=== PATIENT | female | born 1995 | race Caucasian/White ===

== ENCOUNTER 2020-06-26 03:41 | Emergency (ER) | payer MEDICAID, OTHER ==
[2020-06-26] MEDS ORDERED: Zofran 4 MG/2 ML VIAL IV ONE (04:03)
[2020-06-26] MEDS ORDERED: Sodium Chloride 0.9% 1000 ML 1,000 ML IV STA ×2 (04:03→06:54)
[2020-06-26] MEDS ORDERED: Sodium Chloride 0.9% 1000 ML 1,000 ML ONE ×2 (04:08→06:55)
[2020-06-26] MEDS ORDERED: Zofran 4 MG/2 ML VIAL ONE (04:08)
[2020-06-26 04:22] LABS: Hematocrit 48.1 % (35-47); Hemoglobin 15.3 gm/dl (12.0-16.0); Mean Cell Volume 88.9 fl (78-100); Mean Corpuscular Hemoglobin 28.3 pg (26-32); Mean Corpuscular Hgb Concent. 31.8 g/dl (32-36); Mean Platelet Volume 10.5 fl (7.5-11.0); Neutrophil % 60.5 % (36.0-66.0); Platelet Count 591 K/mm3 (150-450); Red Blood Count 5.41 M/mm3 (4.1-5.4); Red Cell Distribution Width 13.9 % (11.5-14.0); White Blood Count 19.4 K/mm3 (4.0-10.5)
[2020-06-26 04:23] LABS: Absolute Neutrophil Ct (ANC) 11.73 (1.4-6.9); BASOPHIL % 0.2 % (0.0-0.4); Basophil (Absolute #) 0.04 (0-0.4); Eosinophil % 1.6 % (0.00-5.0); Eosinophil (Absolute #) 0.32 (0-0.5); Lymphocyte (Absolute #) 6.15 (1.0-4.6); Lymphocytes % 31.7 % (24.0-44.0); Monocyte (Absolute #) 1.16 (0.0-1.3)
[2020-06-26] MEDS ORDERED: MORPHINE SULFATE 4 MG INJ IV ONE (04:26)
[2020-06-26] MEDS ORDERED: PROTONIX 40 MG IV IV ONE ×2 (04:26→04:28)
[2020-06-26] MEDS ORDERED: MORPHINE SULFATE 4 MG INJ ONE (04:28)
[2020-06-26] MEDS ORDERED: Reglan 10 MG/2 ML IV ONE (04:33)
--- NOTE | 2020-06-26 04:33 | ERPHSYRPT ---
- History of Present Illness Historian: patient Exam Limitations: no limitations Patient Subjective Stated Complaint: pt states "I have been vomiting all night and my stomach hurts." Triage Nursing Assessment: pt ambulated into the er; pt is axo x4; c/o N/V and abd pain; pt states 7/10 pain to upper abd; pt states tenderness with palpation to upper abd; pt states that pain began tonight; pt states that she has been vomiting since 2300; pt states that she thinks she ate something bad; abd in round, soft, tenderness with palpation; N/V; diaphoretic; mucus membranes pink and moist; pt denies fever; pt afebrile; hypertensive; pt denies diarrhea Timing/Duration: hour(s) (6), constant, gradual onset, worse (Both thank you) Activities at Onset: rest Quality: sharpness Abdominal Pain Onset Location: RUQ, epigastric Pain Radiation: no radiation Severity of Pain-Max: moderate Severity of Pain-Current: moderate Modifying Factors: Worsens With: movement, palpation, vomiting Associated Symptoms: nausea, vomiting Previous symptoms: same symptoms as today Hx Tetanus, Diphtheria Vaccination/Date Given: No Hx Influenza Vaccination/Date Given: No Hx Pneumococcal Vaccination/Date Given: No <RHONDA GRANT - Last Filed: 06/26/20 04:30> <LAUREN HUMPHREY - Last Filed: 06/26/20 08:06> - History of Present Illness Time Seen by Provider: 06/26/20 04:26 Physician History: 25 years old female presented in the ER with chief complaint of epigastric and right upper quadrant pain started earlier tonight, constant, moderate to severe intensity, sharp in nature, nonradiating, associated with multiple episodes of nonprojectile, nonbilious vomiting with no hematemesis. Patient report having similar symptoms couple of days ago with nausea without vomiting and subsided on its own. No fever or chills reported. (RHONDA GRANT) Allergies/Adverse Reactions: No Known Drug Allergies Allergy (Unverified 06/26/20 03:47) Home Medications: Methadone HCl 80 mg PO DAILY 06/26/20 [History] Travel Risk - International Travel Have you traveled outside of the country in past 3 weeks: No - Coronavirus Screening Are you exhibiting any of the following symptoms?: Yes Symptoms: Vomiting/Diarrhea Close contact with a COVID-19 positive Pt in past 14-21 Days: No - Vaccine Status Have you recieved a Covid-19 vaccination: No <RHONDA GRANT - Last Filed: 06/26/20 04:30> - Review of Systems Constitutional: Fatigue, Weakness Eyes: No Symptoms Ears, Nose, & Throat: No Symptoms Respiratory: No Symptoms Cardiac: No Symptoms Abdominal/Gastrointestinal: Abdominal Pain, Nausea, Vomiting Genitourinary Symptoms: No Symptoms Musculoskeletal: No Symptoms Skin: No Symptoms Neurological: No Symptoms Psychological: No Symptoms Endocrine: No Symptoms Hematologic/Lymphatic: No Symptoms Immunological/Allergic: No Symptoms <RHONDA GRANT - Last Filed: 06/26/20 04:30> - Past Medical History Pertinent Past Medical History: Yes Psycho-Social History: Anxiety, Depression - Past Surgical History Past Surgical History: No - Social History Smoking Status: Current some day smoker Exposure to second hand smoke: No Drug Use: marijuana Patient Lives Alone: No - Female History Hx Now: Yes <RHONDA GRANT - Last Filed: 06/26/20 04:30> - Physical Exam General Appearance: no apparent distress, alert Eye Exam: PERRL/EOMI, eyes nml inspection Ears, Nose, Throat Exam: normal ENT inspection, TMs normal, pharynx normal Neck Exam: normal inspection, supple, full range of motion Respiratory Exam: normal breath sounds, lungs clear Cardiovascular Exam: regular rate/rhythm, normal heart sounds Gastrointestinal/Abdomen Exam: soft, normal bowel sounds, tenderness (Epigastric right upper quadrant with positive Kaur sign), guarding Back Exam: normal inspection, normal range of motion Extremity Exam: normal inspection, normal range of motion, pelvis stable Neurologic Exam: alert, oriented x 3, cooperative Skin Exam: normal color SpO2 Interpretation: normal SpO2: 96 O2 Delivery: Room Air <RHONDA GRANT - Last Filed: 06/26/20 04:30> - Physical Exam General Appearance: no apparent distress, mild distress <LAUREN HUMPHREY - Last Filed: 06/26/20 08:06> - Nursing Vital Signs Nursing Vital Signs: Initial Vital Signs Pulse Rate 103 H 06/26/20 03:50 Respiratory Rate 22 06/26/20 03:50 Blood Pressure 152/113 06/26/20 03:50 Pain Scale Pain Intensity 0 - Course Nursing assessment & vital signs reviewed: Yes - CT Exams Abdomen/Pelvis CT Interpretation: Tele-radiologist Report, Other (Patient by Dr. Vargas indicated mild fluid distention small bowel loops with wall thickening and enhancement favoring enteritis.) <LAUREN HUMPHREY - Last Filed: 06/26/20 08:06> Ordered Tests: Active Orders 24 hr Category Date Time Status NPO (ED) STAT Care 06/26/20 04:26 Active ABDOMEN AND PELVIS W CONTRAST [CT] Stat Exams 06/26/20 04:23 Completed AMYLASE Stat Lab 06/26/20 04:15 Completed CBC W DIFF Stat Lab 06/26/20 04:15 Completed CMP Stat Lab 06/26/20 04:15 Completed HCG QUALITATIVE,SERUM Stat Lab 06/26/20 04:20 Completed LIPASE Stat Lab 06/26/20 04:15 Completed UA W/RFX UR CULTURE Stat Lab 06/26/20 06:15 Completed Medication Summary Discontinued Medications Generic Name Dose Route Start Last Admin Trade Name Freq PRN Reason Stop Dose Admin Sodium Chloride 1,000 mls @ 999 mls/hr 06/26/20 04:03 06/26/20 05:38 Sodium Chloride 0.9% 1000 Ml IV 06/26/20 05:03 Infused .Q1H1M STA Infusion Sodium Chloride Confirm 06/26/20 04:08 Sodium Chloride 0.9% 1000 Ml Administered 06/26/20 04:09 Dose 1,000 mls @ ud .ROUTE .STK-MED ONE Sodium Chloride 1,000 mls @ 999 mls/hr 06/26/20 06:54 06/26/20 06:57 Sodium Chloride 0.9% 1000 Ml IV 06/26/20 07:54 999 mls/hr .Q1H1M STA Administration Sodium Chloride Confirm 06/26/20 06:55 Sodium Chloride 0.9% 1000 Ml Administered 06/26/20 06:56 Dose 1,000 mls @ ud .ROUTE .STK-MED ONE Metoclopramide HCl 10 mg 06/26/20 04:33 06/26/20 04:39 Reglan 10 Mg/2 Ml IV 06/26/20 04:34 10 mg STAT ONE Administration Metoclopramide HCl Confirm 06/26/20 04:37 Reglan 10 Mg/2 Ml Administered 06/26/20 04:38 Dose 10 mg .ROUTE .STK-MED ONE Morphine Sulfate 4 mg 06/26/20 04:26 06/26/20 04:29 Morphine Sulfate 4 Mg Inj IV 06/26/20 04:27 4 mg STAT ONE Administration Morphine Sulfate Confirm 06/26/20 04:28 Morphine Sulfate 4 Mg Inj Administered 06/26/20 04:29 Dose 4 mg .ROUTE .STK-MED ONE Ondansetron HCl 4 mg 06/26/20 04:03 06/26/20 04:11 Zofran 4 Mg/2 Ml Vial IV 06/26/20 04:04 4 mg STAT ONE Administration Ondansetron HCl Confirm 06/26/20 04:08 Zofran 4 Mg/2 Ml Vial Administered 06/26/20 04:09 Dose 4 mg .ROUTE .STK-MED ONE Pantoprazole Sodium 40 mg 06/26/20 04:26 06/26/20 04:30 Protonix 40 Mg Iv IV 06/26/20 04:27 40 mg STAT ONE Administration Pantoprazole Sodium Confirm 06/26/20 04:28 Protonix 40 Mg Iv Administered 06/26/20 04:29 Dose 40 mg IV .STK-MED ONE Lab/Rad Data: Laboratory Result Diagrams 06/26/20 04:15 06/26/20 04:15 Laboratory Results 06/26/20 06/26/20 06/26/20 Range/Units 06:15 04:20 04:15 WBC (4.0-10.5) K/mm3 RBC (4.1-5.4) M/mm3 Hgb (12.0-16.0) gm/dl Hct (35-47) % MCV (78-100) fl MCH (26-32) pg MCHC (32-36) g/dl RDW (11.5-14.0) % Plt Count (150-450) K/mm3 MPV (7.5-11.0) fl Gran % (36.0-66.0) % Eos # (Auto) (0-0.5) Absolute Lymphs (auto) (1.0-4.6) Absolute Monos (auto) (0.0-1.3) Lymphocytes % (24.0-44.0) % Monocytes % (0.0-12.0) % Eosinophils % (0.00-5.0) % Basophils % (0.0-0.4) % Absolute Granulocytes (1.4-6.9) Basophils # (0-0.4) Sodium 139 (137-145) mmol/L Potassium 3.6 (3.5-5.1) mmol/L Chloride 98 (98-107) mmol/L Carbon Dioxide 31 H (22-30) mmol/L Anion Gap 14.5 (5-15) MEQ/L BUN 13 (7-17) mg/dL Creatinine 1.07 H (0.52-1.04) mg/dL Estimated GFR > 60.0 ML/MIN Glucose 170 H (74-106) mg/dL Calcium 10.2 (8.4-10.2) mg/dL Total Bilirubin 0.50 (0.2-1.3) mg/dL AST 37 H (14-36) U/L ALT 38 H (0-35) U/L Alkaline Phosphatase 116 (38-126) U/L Serum Total Protein 9.1 H (6.3-8.2) g/dL Albumin 4.9 (3.5-5.0) g/dL Amylase 92 (30-110) U/L Lipase 171 (23-300) U/L Serum , Qual NEGATIVE (Negative) Urine Color YELLOW (YELLOW) Urine Appearance CLEAR (CLEAR) Urine pH 5.0 (5-6) Ur Specific Whiting >1.060 (1.005-1.025) Urine Protein NEGATIVE (Negative) Urine Ketones NEGATIVE (NEGATIVE) Urine Blood SMALL (0-5) Davy/ul Urine Nitrite NEGATIVE (NEGATIVE) Urine Bilirubin NEGATIVE (NEGATIVE) Urine Urobilinogen NEGATIVE (0-1) mg/dL Ur Leukocyte Esterase NEGATIVE (NEGATIVE) Urine WBC (Auto) 0-2 (0-5) /HPF Urine RBC (Auto) NONE (0-2) /HPF U Epithel Cells (Auto) RARE (FEW) /HPF Urine Bacteria (Auto) NONE (NEGATIVE) /HPF Urine Mucus (Auto) SLIGHT (NEGATIVE) /HPF Urine Culture Reflexed NO (NO) Urine Glucose NEGATIVE (NEGATIVE) mg/dL Slides for Path Review 06/26/20 Range/Units 04:15 WBC 19.4 H (4.0-10.5) K/mm3 RBC 5.41 H (4.1-5.4) M/mm3 Hgb 15.3 (12.0-16.0) gm/dl Hct 48.1 H (35-47) % MCV 88.9 (78-100) fl MCH 28.3 (26-32) pg MCHC 31.8 L (32-36) g/dl RDW 13.9 (11.5-14.0) % Plt Count 591 H (150-450) K/mm3 MPV 10.5 (7.5-11.0) fl Gran % 60.5 (36.0-66.0) % Eos # (Auto) 0.32 (0-0.5) Absolute Lymphs (auto) 6.15 H (1.0-4.6) Absolute Monos (auto) 1.16 (0.0-1.3) Lymphocytes % 31.7 (24.0-44.0) % Monocytes % 6.0 (0.0-12.0) % Eosinophils % 1.6 (0.00-5.0) % Basophils % 0.2 (0.0-0.4) % Absolute Granulocytes 11.73 H (1.4-6.9) Basophils # 0.04 (0-0.4) Sodium (137-145) mmol/L Potassium (3.5-5.1) mmol/L Chloride (98-107) mmol/L Carbon Dioxide (22-30) mmol/L Anion Gap (5-15) MEQ/L BUN (7-17) mg/dL Creatinine (0.52-1.04) mg/dL Estimated GFR ML/MIN Glucose (74-106) mg/dL Calcium (8.4-10.2) mg/dL Total Bilirubin (0.2-1.3) mg/dL AST (14-36) U/L ALT (0-35) U/L Alkaline Phosphatase (38-126) U/L Serum Total Protein (6.3-8.2) g/dL Albumin (3.5-5.0) g/dL Amylase (30-110) U/L Lipase (23-300) U/L Serum , Qual (Negative) Urine Color (YELLOW) Urine Appearance (CLEAR) Urine pH (5-6) Ur Specific Whiting (1.005-1.025) Urine Protein (Negative) Urine Ketones (NEGATIVE) Urine Blood (0-5) Davy/ul Urine Nitrite (NEGATIVE) Urine Bilirubin (NEGATIVE) Urine Urobilinogen (0-1) mg/dL Ur Leukocyte Esterase (NEGATIVE) Urine WBC (Auto) (0-5) /HPF Urine RBC (Auto) (0-2) /HPF U Epithel Cells (Auto) (FEW) /HPF Urine Bacteria (Auto) (NEGATIVE) /HPF Urine Mucus (Auto) (NEGATIVE) /HPF Urine Culture Reflexed (NO) Urine Glucose (NEGATIVE) mg/dL Slides for Path Review YES - Progress Progress: improved <LAUREN HUMPHREY - Last Filed: 06/26/20 08:06> <RHONDA GRANT - Last Filed: 06/26/20 04:30> - Departure Departure Disposition: Home Critical Care Time: No <LAUREN HUMPHREY - Last Filed: 06/26/20 08:06> - Departure Clinical Impression: Enteritis, Infectious diarrheal disease Condition: Stable Referrals: DOCTOR,NO FAMILY [Primary Care Provider] - Additional Instructions: Meds as ordered, clear liquids for 48 hours. Return if further problems Prescriptions: Amoxicillin 875 mg PO BID 7 Days #14 tablet Metronidazole 500 mg [Flagyl 500 MG] 500 mg PO TID 7 Days #21 tablet Ondansetron HCl [Zofran] 4 mg PO TID PRN #10 tablet PRN Reason: Nausea/Vomiting
[2020-06-26 04:35] LABS: ALBUMIN 4.9 g/dL (3.5-5.0); ALKALINE PHOSPHATASE 116 U/L (38-126); AMYLASE 92 U/L (30-110); ANION GAP 14.5 MEQ/L (5-15); BLOOD UREA NITROGEN 13 mg/dL (7-17); CHLORIDE 98 mmol/L (98-107); Calcium 10.2 mg/dL (8.4-10.2); Carbon Dioxide 31 mmol/L (22-30); Creatinine 1 1.07 mg/dL (0.52-1.04); EST GLOMERULAR FILTRATION RATE > 60.0 ML/MIN; Glucose 170 mg/dL (74-106); LIPASE 171 U/L (23-300); Potassium 3.6 mmol/L (3.5-5.1); SGOT/AST 37 U/L (14-36); SGPT/ALT 38 U/L (0-35); SODIUM 139 mmol/L (137-145); Total Protein 9.1 g/dL (6.3-8.2)
[2020-06-26] MEDS ORDERED: Reglan 10 MG/2 ML ONE (04:37)
[2020-06-26 05:27] LABS: Slide Review 1 YES
[2020-06-26 06:46] LABS: Appearance CLEAR (CLEAR); Bilirubin NEGATIVE (NEGATIVE); Blood SMALL Ery/ul (0-5); Epithelial Cells RARE /HPF (FEW); Glucose NEGATIVE (NEGATIVE); Ketones NEGATIVE (NEGATIVE); Leukocyte Esterase NEGATIVE (NEGATIVE); Mucus SLIGHT /HPF (NEGATIVE); Nitrite NEGATIVE (NEGATIVE); Protein,Urine Dip NEGATIVE (Negative); Specific Gravity >1.060 (1.005-1.025); Urobilinogen NEGATIVE mg/dL (0-1); WBC 0-2 /HPF (0-5)
[2020-06-26 07:54] VITALS: BP 122/83
--- NOTE | 2020-06-26 07:56 | XRAY ---
Indication: Right upper quadrant pain 2 days. Nausea, vomiting, and elevated WBC. Multiple contiguous axial images obtained through the abdomen and pelvis using 80 cc Isovue 370 contrast. Comparison: None Lung bases are clear. Heart not enlarged. Noncontrasted stomach and bowel loops appear nonobstructed. Mild fluid distended small bowel loops with fluid leveling and mild wall thickening/enhancement favor enteritis. Normal appendix. Tiny cul-de-sac fluid presumed physiologic from rupture/leaking cyst. Mild diffuse fatty liver. Remaining liver, gallbladder, pancreas, spleen, adrenal glands, kidneys, ureters, bladder, uterus, and aorta appear unremarkable. No pathologic retroperitoneal lymphadenopathy. Osseous structures intact. Impression: 1. Mild fluid distended small bowel loops with wall thickening/enhancement favor enteritis. 2. Fatty liver and tiny physiologic cul-de-sac fluid. Comment: Preliminary interpretation was made by [facility]. No critical discrepancy.
[2020-06-26 08:03] VITALS: PULSE 93; O2SAT 98
== END 2020-06-26 08:42 | disposition home or self-care (01) ==
LOC: ED 03:41
DX: K52.9 Noninfective gastroenteritis and colitis, unspecified (principal)
CPT/HCPCS: 36415; 74177; 80053; 81001; 81025; 82150; 83690; 85025; 96360; 96361; 96374; 96375; 99284; J2270; J2405

== ENCOUNTER 2021-07-29 16:30 | Observation (INO) | payer OTHER ==
--- NOTE | 2021-07-29 16:42 | ERPHSYRPT ---
- History of Present Illness Time Seen by Provider: 07/29/21 16:42 Source: patient Exam Limitations: no limitations Physician History: This is a 26-year-old white female who has a history of narcotic abuse and is on Suboxone 09/06 and presents with overdose and suicide attempt. Patient states she was trying to harm herself. At approximately 4 PM she took 5 or 6 of her Suboxone medication. She presents via EMS. She is very tearful and anxious because of the fight with her boyfriend. Patient states that she attempted suicide approximately 9 years ago. Patient admits to using methamphetamines earlier today and yesterday. Patient has a mild headache but denies chest pain. She denies shortness of breath. She denies abdominal pain. She is had no nausea vomiting or diarrhea. Patient is not homicidal. She denies hallucinations. Timing/Duration: today Severity of Symptoms-Max: moderate Severity of Symptoms-Current: moderate Context related to: significant other Suicidal thoughts: attempt, specific plan Associated Symptoms: depressed, suicidal ideation Previous symptoms: same symptoms as today Allergies/Adverse Reactions: No Known Drug Allergies Allergy (Verified 07/29/21 16:48) Home Medications: Buprenorphine HCl/Naloxone HCl [Buprenorphine-Nalox 8-2 mg Tab] 2 tab PO DAILY 07/29/21 [History] Hx Tetanus, Diphtheria Vaccination/Date Given: No Hx Influenza Vaccination/Date Given: No Hx Pneumococcal Vaccination/Date Given: No Travel Risk - International Travel Have you traveled outside of the country in past 3 weeks: No - Coronavirus Screening Are you exhibiting any of the following symptoms?: No Close contact with a COVID-19 positive Pt in past 14-21 Days: No - Vaccine Status Have you recieved a Covid-19 vaccination: No - Past Medical History Pertinent Past Medical History: Yes Psycho-Social History: Anxiety, Depression - Past Surgical History Past Surgical History: No - Social History Smoking Status: Current some day smoker Exposure to second hand smoke: No Drug Use: marijuana Patient Lives Alone: No - Review of Systems Constitutional: No Symptoms Eyes: No Symptoms Ears, Nose, & Throat: No Symptoms Respiratory: No Symptoms Cardiac: No Symptoms Abdominal/Gastrointestinal: No Symptoms Genitourinary Symptoms: No Symptoms Musculoskeletal: No Symptoms Neurological: Headache Psychological: Drug Abuse, Anxiety, Depression, Suicidal Ideations, No Homicidal Ideations Endocrine: No Symptoms Hematologic/Lymphatic: No Symptoms Immunological/Allergic: No Symptoms All Other Systems: Reviewed and Negative - Nursing Vital Signs Nursing Vital Signs: Initial Vital Signs Temperature 96.7 F 07/29/21 16:37 Pulse Rate 152 H 07/29/21 16:37 Respiratory Rate 28 H 07/29/21 16:37 Blood Pressure 131/109 07/29/21 16:37 O2 Sat by Pulse Oximetry 99 07/29/21 16:37 Pain Scale Pain Intensity 0 - Physical Exam General Appearance: mild distress, alert, anxiety Eyes, Ears, Nose, Throat Exam: normal ENT inspection Neck Exam: normal inspection, non-tender, supple, full range of motion Respiratory Exam: normal breath sounds, lungs clear, airway intact, No chest tenderness, No respiratory distress Cardiovascular Exam: regular rate/rhythm, normal heart sounds, normal peripheral pulses Gastrointestinal/Abdominal Exam: soft, normal bowel sounds, No tenderness Current Suicidality: has suicide plan Neurological Exam: alert, cop examiner II-XII nml as tested, oriented x 3, anxious, depressed affect Behavior/Eye Contact/Speech: alert & cooperative, avoids eye contact, intoxicated appearance Thoughts/Hallucinations: normal thought pattern, no apparent hallucination Skin Exam: normal color, warm, dry SpO2 Interpretation: normal O2 Delivery: Room Air - Course Nursing assessment & vital signs reviewed: Yes EKG Interpreted by Me: RATE ([id number]), Sinus Tach, NORMAL AXIS, NORMAL INTERVALS, NORMAL QRS, NORMAL ST-T, Other (Ventricular premature complex. No acute isc hemic changes.) Ordered Tests: Active Orders 24 hr Category Date Time Status Clean Catch Urine Specimen STAT Care 07/29/21 16:42 Active EKG-ER Only STAT Care 07/29/21 16:42 Active IV Insertion STAT Care 07/29/21 16:42 Active ACETAMINOPHEN Stat Lab 07/29/21 17:25 Completed CBC W DIFF Stat Lab 07/29/21 16:42 Completed CMP Stat Lab 07/29/21 17:25 Completed ETHYL ALCOHOL Stat Lab 07/29/21 17:25 Completed HCG,QUALITATIVE URINE Stat Lab 07/29/21 18:45 Ordered SALICYLATE Stat Lab 07/29/21 17:25 Completed UA W/RFX CULTURE Stat Lab 07/29/21 Ordered Urine Triage Profile Stat Lab 07/29/21 18:45 Ordered Transfer Order Routine Transfer 07/29/21 Ordered Medication Summary Discontinued Medications Generic Name Dose Route Start Last Admin Trade Name Freq PRN Reason Stop Dose Admin Sodium Chloride 1,000 mls @ 999 mls/hr 07/29/21 17:01 07/29/21 18:32 Sodium Chloride 0.9% 1000 Ml IV 07/29/21 18:01 Infused .Q1H1M STA Infusion Sodium Chloride Confirm 07/29/21 17:28 Sodium Chloride 0.9% 1000 Ml Administered 07/29/21 17:29 Dose 1,000 mls @ ud .ROUTE .STK-MED ONE Ondansetron HCl 4 mg 07/29/21 17:01 07/29/21 17:31 Ondansetron Hcl 4 Mg/2 Ml Vial IV 07/29/21 17:02 4 mg STAT ONE Administration Ondansetron HCl Confirm 07/29/21 17:28 Ondansetron Hcl 4 Mg/2 Ml Vial Administered 07/29/21 17:29 Dose 4 mg .ROUTE .STK-MED ONE Potassium Chloride 10 meq 07/29/21 18:05 07/29/21 18:21 Potassium Chloride Tab 10 Meq Tab PO 07/29/21 18:06 10 meq STAT ONE Administration Potassium Chloride Confirm 07/29/21 18:19 Potassium Chloride Tab 10 Meq Tab Administered 07/29/21 18:20 Dose 10 meq PO .STK-MED ONE Lab/Rad Data: Laboratory Result Diagrams 07/29/21 16:42 07/29/21 17:25 Laboratory Results 07/29/21 07/29/21 Range/Units 17:25 16:42 WBC 9.2 (4.0-10.5) x10^3/uL RBC 4.45 (4.1-5.4) x10^6/uL Hgb 13.3 (12.0-16.0) g/dL Hct 38.9 (35-47) % MCV 87.4 (78-100) fL MCH 29.9 (26-32) pg MCHC 34.2 (32-36) g/dL RDW 12.8 (11.5-14.0) % Plt Count 530 H (150-450) x10^3/uL MPV 9.6 (7.5-11.0) fL Gran % 70.5 H (36.0-66.0) % Immature Gran % (Auto) 0.3 (0.00-0.4) % Nucleat RBC Rel Count 0.0 (0.00-0.1) % Eos # (Auto) 0.03 (0-0.5) x10^3/uL Immature Gran # (Auto) 0.03 (0.00-0.03) x10^3u/L Absolute Lymphs (auto) 1.99 (1.0-4.6) x10^3/uL Absolute Monos (auto) 0.66 (0.0-1.3) x10^3/uL Absolute Nucleated RBC 0.00 (0.00-0.01) x10^3u/L Lymphocytes % 21.5 L (24.0-44.0) % Monocytes % 7.1 (0.0-12.0) % Eosinophils % 0.3 (0.00-5.0) % Basophils % 0.3 (0.0-0.4) % Absolute Granulocytes 6.50 (1.4-6.9) x10^3/uL Basophils # 0.03 (0-0.4) x10^3/uL Sodium 142 (137-145) mmol/L Potassium 3.1 L (3.5-5.1) mmol/L Chloride 106 (98-107) mmol/L Carbon Dioxide 23 (22-30) mmol/L Anion Gap 16.1 H (5-15) MEQ/L BUN 12 (7-17) mg/dL Creatinine 0.93 (0.52-1.04) mg/dL Estimated GFR > 60.0 ML/MIN Glucose 131 H (74-106) mg/dL Calcium 10.0 (8.4-10.2) mg/dL Total Bilirubin 0.80 (0.2-1.3) mg/dL AST 29 (14-36) U/L ALT 22 (0-35) U/L Alkaline Phosphatase 71 (38-126) U/L Serum Total Protein 8.1 (6.3-8.2) g/dL Albumin 4.8 (3.5-5.0) g/dL Salicylates < 1.0 L (2-20) mg/dL Acetaminophen < 10 L (10-30) ug/ml Ethyl Alcohol < 10 (0-10) mg/dL - Progress Progress Note: 07/29/21 17:06 Poison Control Center was notified and we are following their recommendations which includes our normal suicide/psych work-up. In addition, they recommend monitoring the patient for minimum of 12 hours before final disposition. We will do a work-up and contact physician monologist for admission and observation. 07/29/21 18:50 Medical decision making: I reviewed this patient with Dr. Hodgson who is covering for unassigned/unattached patients. Since the patient needs to be observed for a minimum of 12 hours before final disposition is made, we will place the patient in observation and then if medically cleared in the morning, psychiatric evaluation will be obtained and final disposition will be made. The patient is unable to urinate at this time and we will obtain the urine either prior to placement in observation or they will obtain it on the floor. Discussed with : Dolly Counseled pt/family regarding: lab results, diagnosis, need for follow-up - Departure Departure Disposition: Observation Clinical Impression: Suicidal ideation, Deliberate medication overdose Condition: Stable Critical Care Time: No Referrals: DOCTOR,NO FAMILY [Primary Care Provider] - Follow up/PCP as directed
[2021-07-29] MEDS ORDERED: Sodium Chloride 0.9% 1000 ML 1,000 ML IV STA (17:01)
[2021-07-29] MEDS ORDERED: Zofran 4 MG/2 ML VIAL IV ONE (17:01)
[2021-07-29] MEDS ORDERED: Sodium Chloride 0.9% 1000 ML 1,000 ML ONE (17:28)
[2021-07-29] MEDS ORDERED: Zofran 4 MG/2 ML VIAL ONE (17:28)
[2021-07-29 17:36] LABS: Basophil (Absolute #) 0.03 x10^3/uL (0-0.4); Eosinophil % 0.3 % (0.00-5.0); Eosinophil (Absolute #) 0.03 x10^3/uL (0-0.5); Hematocrit 38.9 % (35-47); Hemoglobin 13.3 g/dL (12.0-16.0); Lymphocyte (Absolute #) 1.99 x10^3/uL (1.0-4.6); Lymphocytes % 21.5 % (24.0-44.0); Mean Cell Volume 87.4 fL (78-100); Mean Corpuscular Hemoglobin 29.9 pg (26-32); Mean Corpuscular Hgb Concent. 34.2 g/dL (32-36); Mean Platelet Volume 9.6 fL (7.5-11.0); Monocyte (Absolute #) 0.66 x10^3/uL (0.0-1.3); Monocytes % 7.1 % (0.0-12.0); Neutrophil % 70.5 % (36.0-66.0); Platelet Count 530 x10^3/uL (150-450); Red Blood Count 4.45 x10^6/uL (4.1-5.4); Red Cell Distribution Width 12.8 % (11.5-14.0); White Blood Count 9.2 x10^3/uL (4.0-10.5)
[2021-07-29 17:46] LABS: ACETAMINOPHEN < 10 ug/ml (10-30); ALBUMIN 4.8 g/dL (3.5-5.0); ALKALINE PHOSPHATASE 71 U/L (38-126); ANION GAP 16.1 MEQ/L (5-15); BLOOD UREA NITROGEN 12 mg/dL (7-17); CHLORIDE 106 mmol/L (98-107); Carbon Dioxide 23 mmol/L (22-30); Creatinine 1 0.93 mg/dL (0.52-1.04); EST GLOMERULAR FILTRATION RATE > 60.0 ML/MIN; ETHYL ALCOHOL < 10 mg/dL (0-10); Glucose 131 mg/dL (74-106); SALICYLATE < 1.0 mg/dL (2-20); SGOT/AST 29 U/L (14-36); SGPT/ALT 22 U/L (0-35); SODIUM 142 mmol/L (137-145); Total Protein 8.1 g/dL (6.3-8.2)
[2021-07-29 17:47] LABS: Potassium 3.1 mmol/L (3.5-5.1)
[2021-07-29] MEDS ORDERED: Klor Con PO ONE ×2 (18:05→18:19)
[2021-07-29 19:01] LABS: Mucus SLIGHT /HPF (NEGATIVE)
[2021-07-29 19:03] LABS: Appearance CLEAR (CLEAR); Bilirubin SMALL (NEGATIVE); Dipstick done @ ? MAIN LAB; Glucose NEGATIVE (NEGATIVE); Ketones NEGATIVE (NEGATIVE); Nitrite NEGATIVE (NEGATIVE); Protein,Urine Dip 30 (Negative); RBC NEGATIVE Ery/ul (0-5); Urobilinogen 1 mg/dL (0-1)
[2021-07-29 19:05] LABS: Bacteria NONE SEEN /HPF (NEGATIVE)
[2021-07-29 19:13] LABS: Barbiturate,Urine NEGATIVE (NEGATIVE); Benzodiazepine,Urine NEGATIVE (NEGATIVE); Cocaine,Urine NEGATIVE (NEGATIVE); Methadone,Urine NEGATIVE (NEGATIVE); Opiate,Urine NEGATIVE (NEGATIVE); PCP,Urine NEGATIVE (NEGATIVE); THC,Urine POSITIVE (NEGATIVE)
[2021-07-29 19:56] LABS: Amphetamine,Urine POSITIVE (NEGATIVE)
[2021-07-29] MEDS ORDERED: Sodium Chloride 0.9% 1000 ML 1,000 ML IV SCH (20:59)
[2021-07-29] MEDS ORDERED: TYLENOL 325 MG PO PRN (20:59)
[2021-07-29] MEDS ORDERED: Zofran 4 MG/2 ML VIAL IV PRN (20:59)
[2021-07-29 21:01] LABS: INFLUENZA A NEGATIVE (NEGATIVE); INFLUENZA B NEGATIVE (NEGATIVE); RESPIRATORY SYNCTIAL VIRUS NEGATIVE (Negative); SARS-CoV-2 Xpert Express NEGATIVE (NEGATIVE)
[2021-07-29 21:36] LABS: Urine Cultured Indicated? NO
[2021-07-29] MEDS ORDERED: Nicoderm CQ 21 MG TOP SCH (23:45)
[2021-07-30] MEDS ORDERED: MOTRIN 400 MG PO PRN (01:08)
[2021-07-30] MEDS ORDERED: NICOTINE PATCH 7MG TD SCH (10:00)
[2021-07-30 11:32] VITALS: PULSE 93; O2SAT 100
[2021-07-30 12:52] VITALS: BP 118/87
[2021-07-30] MEDS ORDERED: Nicoderm CQ 21 MG TOP SCH (22:00)
--- NOTE | 2021-08-01 14:07 | SSS ---
DISCHARGE DIAGNOSIS: INTENTIONAL OVERDOSE ON SUBOXONE. HISTORY: The patient is a 26-year-old white female who presented to the emergency room after having taken what was reported five to six of her Suboxone tablets. She reported she was in a bad place at the time. She had a fight with her boyfriend and other bad things had been going on. She reports she has some dental procedure to be done on her mouth that she had set up this coming week. She had been taking Keflex for that. The patient also reports a previous suicide attempt nine years ago. She reports that her drug of choice had always been narcotics but she has been using methamphetamines occasionally when it is around. I suspect it is much more than just occasional as her dentition is significantly poor consistent with assisted meth use. The patient is currently quite contrite and reports that she realizes she made a mistake last night and she has no intention of doing herself harm presently. She has a safe place to go home to, to her father's home. The patient actually already has an appointment to see [facility] on Sunday. PAST MEDICAL/SURGICAL HISTORY: The patient's medical history is otherwise significant for anxiety, depression and suicidal ideation but otherwise she does not see a regular doctor for routine treatment. HOME MEDICATIONS: The only routine stuff she takes is her Suboxone tablets. ALLERGIES: NKDA. PHYSICAL EXAMINATION: The patient's vital signs on admission showed her temperature 96.7F, pulse 152, respiratory rate 28 and blood pressure 131/109. O2 saturation 99%. HEENT: Currently normocephalic and atraumatic. Pupils equal round reactive to light. Extraocular movements intact. Oropharynx is pink and moist. She is wearing a nose ring. NECK: Supple without lymphadenopathy, thyromegaly or JVD. CHEST: Clear to auscultation. HEART: Regular rate and rhythm without murmurs, rubs or gallops. ABDOMEN: Soft. No palpable masses. EXTREMITIES: Without cyanosis, clubbing or edema. NEUROLOGIC: The patient is alert and oriented x3 with no focal deficits. LAB DATA AND TESTS: The patient's laboratory studies revealed negative for COVID, respiratory syncytial virus and influenza. Her UA showed fairly normal looking UA. She was positive for amphetamines on urine drug screen. Her metabolic panel showed nonfasting sugar 131, BUN 12, creatinine 0.93. Potassium slightly low at 3.1. Acetaminophen, salicylates and alcohol were all negative. Her CBC was normal other than platelets of 530,000. On telemetry the patient showed sinus tachycardia. HOSPITAL COURSE: The patient initially reported that she was going to leave so we initiated [facility] Order for her. She will get a tele-psych consult this morning. The patient is otherwise medically clear to go home with the patient currently saying that she has no suicidal ideation and the current set up for appointment on Sunday, she will be discharged home if cleared by [facility]. If not, if they require inpatient stay, she will be transferred to their facility for further evaluation and management.
== END 2021-07-30 16:00 ==
LOC: ED 16:30 → ICU 20:33
PROVIDERS: ADMIT Family Medicine; ATTEND Family Medicine
DX: R45.851 Suicidal ideations (principal); T40.492A Poisoning by other synthetic narcotics, intentional self-harm, initial encounter; F41.9 Anxiety disorder, unspecified; F32.A Depression, unspecified; F15.90 Other stimulant use, unspecified, uncomplicated; Z72.0 Tobacco use; Z79.899 Other long term (current) drug therapy; Z20.828 Contact with and (suspected) exposure to other viral communicable diseases
CPT/HCPCS: 0241U; 36000; 36415; 80053; 80307; 81015; 81025; 84132; 85025; 93005; 96360; 96374; 99285; G0480; 90791; 93268; J2405; Q3014; A9270-GY; G0378

== ENCOUNTER 2021-09-16 13:56 | Emergency (ER) | payer OTHER ==
--- NOTE | 2021-09-16 14:09 | ERPHSYRPT ---
- History of Present Illness Time Seen by Provider: 09/16/21 14:09 Source: patient, family Exam Limitations: clinical condition Physician History: This is a 26-year-old white female patient who is on Suboxone and presents with 1 week history of intermittent nausea, sweats, questionable exposure to individuals with flulike symptoms, and a headache that is worsened today. Headache is the worst she is ever had. There is been associated nausea and vomiting with this. Patient has light sensitivity as well. Timing/Duration: week(s) (1), worse Cough Quality/Degree: no cough Possible Cause: no prior episodes Modifying Factors: Improves With: activity Associated Symptoms: dizziness, headache Allergies/Adverse Reactions: No Known Drug Allergies Allergy (Verified 09/16/21 14:09) Home Medications: Buprenorphine HCl/Naloxone HCl [Buprenorphine-Nalox 8-2 mg Tab] 1 tab SL BID 07/29/21 [History] Hx Tetanus, Diphtheria Vaccination/Date Given: No Hx Influenza Vaccination/Date Given: No Hx Pneumococcal Vaccination/Date Given: No Travel Risk - International Travel Have you traveled outside of the country in past 3 weeks: No - Coronavirus Screening Are you exhibiting any of the following symptoms?: No Close contact with a COVID-19 positive Pt in past 14-21 Days: No - Vaccine Status Have you recieved a Covid-19 vaccination: No - Review of Systems Constitutional: No Symptoms Eyes: No Symptoms Ears, Nose, & Throat: No Symptoms Respiratory: No Symptoms Cardiac: No Symptoms Abdominal/Gastrointestinal: Nausea, Vomiting Genitourinary Symptoms: No Symptoms Musculoskeletal: No Symptoms Skin: No Symptoms Neurological: Headache Psychological: No Symptoms Endocrine: No Symptoms Hematologic/Lymphatic: No Symptoms Immunological/Allergic: No Symptoms All Other Systems: Reviewed and Negative - Past Medical History Pertinent Past Medical History: Yes Neurological History: No Pertinent History ENT History: No Pertinent History Cardiac History: No Pertinent History Respiratory History: No Pertinent History Endocrine Medical History: No Pertinent History Musculoskeletal History: No Pertinent History GI Medical History: No Pertinent History History: No Pertinent History Psycho-Social History: Anxiety, Depression, Other Female Reproductive Disorders: No Pertinent History Other Medical History: borderline personality disorder, panic disorder. tooth infection - plan for oral surgery 08/01/21 to remove all teeth - Past Surgical History Past Surgical History: No - Social History Smoking Status: Current every day smoker How long have you smoked: 11 years Exposure to second hand smoke: Yes Drug Use: marijuana, methamphetamines, narcotics, other Patient Lives Alone: No - Nursing Vital Signs Nursing Vital Signs: Initial Vital Signs Temperature 96.9 F 09/16/21 13:56 Pulse Rate 90 09/16/21 13:56 Respiratory Rate 22 09/16/21 13:56 Blood Pressure 120/77 09/16/21 13:56 O2 Sat by Pulse Oximetry 97 09/16/21 13:56 Pain Scale Pain Intensity 5 - Physical Exam General Appearance: mild distress (To moderate), alert, anxiety Eye Exam: PERRL/EOMI, eyes nml inspection Ears, Nose, Throat Exam: normal ENT inspection, moist mucous membranes Neck Exam: normal inspection, non-tender, supple, full range of motion Respiratory Exam: normal breath sounds, lungs clear, airway intact, No chest tenderness, No respiratory distress Cardiovascular Exam: regular rate/rhythm, normal heart sounds, normal peripheral pulses Gastrointestinal/Abdomen Exam: soft, normal bowel sounds, No tenderness Pelvic Exam: not done Rectal Exam: not done Back Exam: normal inspection, normal range of motion, No CVA tenderness, No vertebral tenderness Extremity Exam: normal inspection, normal range of motion, pelvis stable Neurologic Exam: alert, oriented x 3, cooperative, 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 tested, normal mood/affect, nml cerebellar function, nml station & gait, sensation nml Skin Exam: normal color, warm, dry Lymphatic Exam: No adenopathy SpO2 Interpretation: normal O2 Delivery: Room Air - Course Nursing assessment & vital signs reviewed: Yes Ordered Tests: Active Orders 24 hr Category Date Time Status IV Insertion STAT Care 09/16/21 14:13 Active Pulse Oximetry (ED) STAT Care 09/16/21 14:13 Active HEAD WITHOUT CONTRAST [CT] Stat Exams 09/16/21 16:32 Completed BLOOD CULTURE Stat Lab 09/16/21 14:20 Received CBC W DIFF Stat Lab 09/16/21 14:20 Completed CMP Stat Lab 09/16/21 14:20 Completed HCG,QUALITATIVE URINE Stat Lab 09/16/21 13:56 Completed [place] Screen Stat Lab 09/16/21 14:20 Completed UA W/RFX CULTURE Stat Lab 09/16/21 13:56 Results Medication Summary Discontinued Medications Generic Name Dose Route Start Last Admin Trade Name Freq PRN Reason Stop Dose Admin Diphenhydramine HCl 25 mg 09/16/21 14:15 09/16/21 14:22 Diphenhydramine Hcl 50 Mg/Ml Vial IV 09/16/21 14:16 25 mg STAT ONE Administration Diphenhydramine HCl Confirm 09/16/21 14:18 Diphenhydramine Hcl 50 Mg/Ml Vial Administered 09/16/21 14:19 Dose 50 mg .ROUTE .STK-MED ONE Sodium Chloride 1,000 mls @ 999 mls/hr 09/16/21 14:13 09/16/21 15:43 Sodium Chloride 0.9% 1000 Ml IV 09/16/21 15:13 Infused .Q1H1M STA Infusion Sodium Chloride Confirm 09/16/21 14:19 Sodium Chloride 0.9% 1000 Ml Administered 09/16/21 14:20 Dose 1,000 mls @ ud .ROUTE .STK-MED ONE Lorazepam 1 mg 09/16/21 14:14 09/16/21 14:23 Lorazepam 2 Mg/1 Ml 2 Mg Vial IV 09/16/21 14:15 1 mg STAT ONE Administration Lorazepam Confirm 09/16/21 14:19 Lorazepam 2 Mg/1 Ml 2 Mg Vial Administered 09/16/21 14:20 Dose 2 mg .ROUTE .STK-MED ONE Prochlorperazine Edisylate 5 mg 09/16/21 14:14 09/16/21 14:22 Prochlorperazine Edisylate 10 Mg/2 Ml Vial IV 09/16/21 14:15 5 mg STAT ONE Administration Prochlorperazine Edisylate Confirm 09/16/21 14:19 Prochlorperazine Edisylate 10 Mg/2 Ml Vial Administered 09/16/21 14:20 Dose 10 mg .ROUTE .STK-MED ONE Lab/Rad Data: Laboratory Result Diagrams 09/16/21 14:20 09/16/21 14:20 Laboratory Results 09/16/21 09/16/21 09/16/21 Range/Units 14:44 14:44 14:20 WBC (4.0-10.5) x10^3/uL RBC (4.1-5.4) x10^6/uL Hgb (12.0-16.0) g/dL Hct (35-47) % MCV (78-100) fL MCH (26-32) pg MCHC (32-36) g/dL RDW (11.5-14.0) % Plt Count (150-450) x10^3/uL MPV (7.5-11.0) fL Gran % (36.0-66.0) % Immature Gran % (Auto) (0.00-0.4) % Nucleat RBC Rel Count (0.00-0.1) % Eos # (Auto) (0-0.5) x10^3/uL Immature Gran # (Auto) (0.00-0.03) x10^3u/L Absolute Lymphs (auto) (1.0-4.6) x10^3/uL Absolute Monos (auto) (0.0-1.3) x10^3/uL Absolute Nucleated RBC (0.00-0.01) x10^3u/L Lymphocytes % (24.0-44.0) % Monocytes % (0.0-12.0) % Eosinophils % (0.00-5.0) % Basophils % (0.0-0.4) % Absolute Granulocytes (1.4-6.9) x10^3/uL Basophils # (0-0.4) x10^3/uL Sodium (137-145) mmol/L Potassium (3.5-5.1) mmol/L Chloride (98-107) mmol/L Carbon Dioxide (22-30) mmol/L Anion Gap (5-15) MEQ/L BUN (7-17) mg/dL Creatinine (0.52-1.04) mg/dL Estimated GFR ML/MIN Glucose (74-106) mg/dL Calcium (8.4-10.2) mg/dL Total Bilirubin (0.2-1.3) mg/dL AST (14-36) U/L ALT (0-35) U/L Alkaline Phosphatase (38-126) U/L Serum Total Protein (6.3-8.2) g/dL Albumin (3.5-5.0) g/dL Urinalys Dipstick Clnc Urine Color (YELLOW) Urine Appearance (CLEAR) Urine pH (5-6) Ur Specific [place] (1.005-1.025) POC Urine Protein Conf (Negative) Urine Ketones (NEGATIVE) Urine Nitrite (NEGATIVE) Urine Bilirubin (NEGATIVE) Urine Urobilinogen (0-1) mg/dL Urine Leukocytes (NEGATIVE) Urine WBC (Auto) Urine RBC (Auto) U Epithel Cells (Auto) Urine Bacteria (Auto) Urine RBC (0-5) Davy/ul Ur Culture Indicated? Urine Glucose (NEGATIVE) mg/dL Urine HCG, Qual (Negative) Monoscreen NEGATIVE (Negative) Influenza Type A Ag NEGATIVE (NEGATIVE) Influenza Type B Ag NEGATIVE (NEGATIVE) RSV (PCR) NEGATIVE (Negative) SARS-CoV-2 (PCR) POSITIVE A (NEGATIVE) Group A Strep Antibody NOT DETECTED (NEGATIVE) 09/16/21 09/16/21 09/16/21 Range/Units 14:20 14:20 13:56 WBC 11.6 H (4.0-10.5) x10^3/uL RBC 4.75 (4.1-5.4) x10^6/uL Hgb 14.2 (12.0-16.0) g/dL Hct 42.4 (35-47) % MCV 89.3 (78-100) fL MCH 29.9 (26-32) pg MCHC 33.5 (32-36) g/dL RDW 13.2 (11.5-14.0) % Plt Count 483 H (150-450) x10^3/uL MPV 10.1 (7.5-11.0) fL Gran % 53.3 (36.0-66.0) % Immature Gran % (Auto) 0.3 (0.00-0.4) % Nucleat RBC Rel Count 0.0 (0.00-0.1) % Eos # (Auto) 0.17 (0-0.5) x10^3/uL Immature Gran # (Auto) 0.03 (0.00-0.03) x10^3u/L Absolute Lymphs (auto) 4.40 (1.0-4.6) x10^3/uL Absolute Monos (auto) 0.78 (0.0-1.3) x10^3/uL Absolute Nucleated RBC 0.00 (0.00-0.01) x10^3u/L Lymphocytes % 37.9 (24.0-44.0) % Monocytes % 6.7 (0.0-12.0) % Eosinophils % 1.5 (0.00-5.0) % Basophils % 0.3 (0.0-0.4) % Absolute Granulocytes 6.19 (1.4-6.9) x10^3/uL Basophils # 0.03 (0-0.4) x10^3/uL Sodium 140 (137-145) mmol/L Potassium 3.4 L (3.5-5.1) mmol/L Chloride 105 (98-107) mmol/L Carbon Dioxide 23 (22-30) mmol/L Anion Gap 15.3 H (5-15) MEQ/L BUN 10 (7-17) mg/dL Creatinine 0.76 (0.52-1.04) mg/dL Estimated GFR > 60.0 ML/MIN Glucose 124 H (74-106) mg/dL Calcium 9.2 (8.4-10.2) mg/dL Total Bilirubin 0.50 (0.2-1.3) mg/dL AST 28 (14-36) U/L ALT 23 (0-35) U/L Alkaline Phosphatase 78 (38-126) U/L Serum Total Protein 8.2 (6.3-8.2) g/dL Albumin 4.6 (3.5-5.0) g/dL Urinalys Dipstick Clnc MAIN LAB Urine Color YELLOW (YELLOW) Urine Appearance CLEAR (CLEAR) Urine pH 6.0 (5-6) Ur Specific [place] 1.015 (1.005-1.025) POC Urine Protein Conf NEGATIVE (Negative) Urine Ketones NEGATIVE (NEGATIVE) Urine Nitrite NEGATIVE (NEGATIVE) Urine Bilirubin NEGATIVE (NEGATIVE) Urine Urobilinogen 0.2 (0-1) mg/dL Urine Leukocytes NEGATIVE (NEGATIVE) Urine WBC (Auto) Pending Urine RBC (Auto) Pending U Epithel Cells (Auto) Pending Urine Bacteria (Auto) Pending Urine RBC LARGE (0-5) Davy/ul Ur Culture Indicated? Pending Urine Glucose NEGATIVE (NEGATIVE) mg/dL Urine HCG, Qual (Negative) Monoscreen (Negative) Influenza Type A Ag (NEGATIVE) Influenza Type B Ag (NEGATIVE) RSV (PCR) (Negative) SARS-CoV-2 (PCR) (NEGATIVE) Group A Strep Antibody (NEGATIVE) 09/16/21 Range/Units 13:56 WBC (4.0-10.5) x10^3/uL RBC (4.1-5.4) x10^6/uL Hgb (12.0-16.0) g/dL Hct (35-47) % MCV (78-100) fL MCH (26-32) pg MCHC (32-36) g/dL RDW (11.5-14.0) % Plt Count (150-450) x10^3/uL MPV (7.5-11.0) fL Gran % (36.0-66.0) % Immature Gran % (Auto) (0.00-0.4) % Nucleat RBC Rel Count (0.00-0.1) % Eos # (Auto) (0-0.5) x10^3/uL Immature Gran # (Auto) (0.00-0.03) x10^3u/L Absolute Lymphs (auto) (1.0-4.6) x10^3/uL Absolute Monos (auto) (0.0-1.3) x10^3/uL Absolute Nucleated RBC (0.00-0.01) x10^3u/L Lymphocytes % (24.0-44.0) % Monocytes % (0.0-12.0) % Eosinophils % (0.00-5.0) % Basophils % (0.0-0.4) % Absolute Granulocytes (1.4-6.9) x10^3/uL Basophils # (0-0.4) x10^3/uL Sodium (137-145) mmol/L Potassium (3.5-5.1) mmol/L Chloride (98-107) mmol/L Carbon Dioxide (22-30) mmol/L Anion Gap (5-15) MEQ/L BUN (7-17) mg/dL Creatinine (0.52-1.04) mg/dL Estimated GFR ML/MIN Glucose (74-106) mg/dL Calcium (8.4-10.2) mg/dL Total Bilirubin (0.2-1.3) mg/dL AST (14-36) U/L ALT (0-35) U/L Alkaline Phosphatase (38-126) U/L Serum Total Protein (6.3-8.2) g/dL Albumin (3.5-5.0) g/dL Urinalys Dipstick Clnc Urine Color (YELLOW) Urine Appearance (CLEAR) Urine pH (5-6) Ur Specific [place] (1.005-1.025) POC Urine Protein Conf (Negative) Urine Ketones (NEGATIVE) Urine Nitrite (NEGATIVE) Urine Bilirubin (NEGATIVE) Urine Urobilinogen (0-1) mg/dL Urine Leukocytes (NEGATIVE) Urine WBC (Auto) Urine RBC (Auto) U Epithel Cells (Auto) Urine Bacteria (Auto) Urine RBC (0-5) Davy/ul Ur Culture Indicated? Urine Glucose (NEGATIVE) mg/dL Urine HCG, Qual NEGATIVE (Negative) Monoscreen (Negative) Influenza Type A Ag (NEGATIVE) Influenza Type B Ag (NEGATIVE) RSV (PCR) (Negative) SARS-CoV-2 (PCR) (NEGATIVE) Group A Strep Antibody (NEGATIVE) - Progress Progress: improved Air Movement: good Progress Note: 09/16/21 17:00 CT of the head without contrast shows no acute intracranial abnormality. Blood Culture(s) Obtained: Yes Antibiotics given: No Counseled pt/family regarding: lab results, diagnosis, need for follow-up, rad results - Departure Departure Disposition: Home Clinical Impression: COVID-19 virus infection, Headache Condition: Stable Critical Care Time: No Referrals: DOCTOR,NO FAMILY [Primary Care Provider] - Follow up/PCP as directed Additional Instructions: Drink plenty of clear liquids. Use Tylenol and ibuprofen and may add Benadryl 25 mg orally every 8 hours to help with headache. Quarantine yourself per protocol. Prescriptions: Ondansetron ODT 4 MG [Zofran Odt 4 mg] 4 mg PO Q6H PRN PRN #10 tablet PRN Reason: Vomiting
[2021-09-16] MEDS ORDERED: Sodium Chloride 0.9% 1000 ML 1,000 ML IV STA (14:13)
[2021-09-16] MEDS ORDERED: Compazine 10 MG/2 ML IV ONE (14:14)
[2021-09-16] MEDS ORDERED: Ativan 2 MG/1 ML VIAL IV ONE (14:14)
[2021-09-16] MEDS ORDERED: BENADRYL 50 MG/ML IV ONE (14:15)
[2021-09-16] MEDS ORDERED: BENADRYL 50 MG/ML ONE (14:18)
[2021-09-16] MEDS ORDERED: Sodium Chloride 0.9% 1000 ML 1,000 ML ONE (14:19)
[2021-09-16] MEDS ORDERED: Compazine 10 MG/2 ML ONE (14:19)
[2021-09-16] MEDS ORDERED: Ativan 2 MG/1 ML VIAL ONE (14:19)
[2021-09-16 14:27] LABS: Absolute Neutrophil Ct (ANC) 6.19 x10^3/uL (1.4-6.9); Basophil (Absolute #) 0.03 x10^3/uL (0-0.4); Eosinophil % 1.5 % (0.00-5.0); Eosinophil (Absolute #) 0.17 x10^3/uL (0-0.5); Hematocrit 42.4 % (35-47); Hemoglobin 14.2 g/dL (12.0-16.0); Lymphocytes % 37.9 % (24.0-44.0); Mean Cell Volume 89.3 fL (78-100); Mean Corpuscular Hemoglobin 29.9 pg (26-32); Mean Corpuscular Hgb Concent. 33.5 g/dL (32-36); Mean Platelet Volume 10.1 fL (7.5-11.0); Monocyte (Absolute #) 0.78 x10^3/uL (0.0-1.3); Monocytes % 6.7 % (0.0-12.0); Neutrophil % 53.3 % (36.0-66.0); Platelet Count 483 x10^3/uL (150-450); Red Blood Count 4.75 x10^6/uL (4.1-5.4); Red Cell Distribution Width 13.2 % (11.5-14.0); White Blood Count 11.6 x10^3/uL (4.0-10.5)
[2021-09-16 14:48] LABS: ALBUMIN 4.6 g/dL (3.5-5.0); ALKALINE PHOSPHATASE 78 U/L (38-126); ANION GAP 15.3 MEQ/L (5-15); BLOOD UREA NITROGEN 10 mg/dL (7-17); CHLORIDE 105 mmol/L (98-107); Calcium 9.2 mg/dL (8.4-10.2); Carbon Dioxide 23 mmol/L (22-30); Creatinine 1 0.76 mg/dL (0.52-1.04); EST GLOMERULAR FILTRATION RATE > 60.0 ML/MIN; Glucose 124 mg/dL (74-106); Potassium 3.4 mmol/L (3.5-5.1); SGOT/AST 28 U/L (14-36); SGPT/ALT 23 U/L (0-35); SODIUM 140 mmol/L (137-145); Total Protein 8.2 g/dL (6.3-8.2)
[2021-09-16 15:29] LABS: INFLUENZA A NEGATIVE (NEGATIVE); INFLUENZA B NEGATIVE (NEGATIVE); RESPIRATORY SYNCTIAL VIRUS NEGATIVE (Negative)
[2021-09-16 16:12] LABS: SARS-CoV-2 Xpert Express POSITIVE (NEGATIVE)
[2021-09-16 16:34] LABS: Mucus SLIGHT /HPF (NEGATIVE)
[2021-09-16 16:42] LABS: Appearance CLEAR (CLEAR); Bilirubin NEGATIVE (NEGATIVE); Dipstick done @ ? MAIN LAB; Glucose NEGATIVE (NEGATIVE); Ketones NEGATIVE (NEGATIVE); Nitrite NEGATIVE (NEGATIVE); Protein,Urine Dip NEGATIVE (Negative); RBC LARGE Ery/ul (0-5); Specific Gravity 1.015 (1.005-1.025); Urobilinogen 0.2 mg/dL (0-1)
--- NOTE | 2021-09-16 16:47 | XRAY ---
Indication: Intermittent headache. Positive Covid 19. Multiple contiguous axial images obtained through the head without contrast. Comparison: None Normal appearing brain parenchyma, ventricles, and bony calvarium. Paranasal sinuses and mastoid air cells are clear. Impression: Normal CT head without contrast exam.
[2021-09-16 17:30] LABS: Urine Cultured Indicated? NO
[2021-09-16 17:34] VITALS: BP 124/76; PULSE 84; O2SAT 99
== END 2021-09-16 17:38 | disposition home or self-care (01) ==
LOC: ED 13:56
DX: U07.1 COVID-19 (principal); R51.9 Headache, unspecified; R11.2 Nausea with vomiting, unspecified; R42 Dizziness and giddiness; Z72.0 Tobacco use; Z79.891 Long term (current) use of opiate analgesic; Z20.828 Contact with and (suspected) exposure to other viral communicable diseases
CPT/HCPCS: 0241U; 36000; 36415; 70450; 80053; 81015; 81025; 85025; 86308; 87040; 87651; 94760; 96374; 96375; 99284; J1200; J2060

== ENCOUNTER 2021-12-27 21:46 | Emergency (ER) | payer OTHER ==
[2021-12-27] MEDS ORDERED: XYLOCAINE 1% HCL 20 ML MDV IJ ONE (21:47)
[2021-12-27 22:18] VITALS: BP 145/104; O2SAT 98
[2021-12-27] MEDS ORDERED: Rocephin 1000 MG INJ ONE (22:35)
[2021-12-27] MEDS: Rocephin 1000 MG INJ IM ONE (22:37)
--- NOTE | 2021-12-27 22:38 | ERPHSYRPT ---
- History of Present Illness Time Seen by Provider: 12/27/21 22:20 Source: patient Exam Limitations: no limitations Patient Subjective Stated Complaint: pt states "I have had mouth infection before and I think I have it again. I have bad teeth. I am suppose to have them all pulled out." Triage Nursing Assessment: pt ambulated into the er; pt is axo x4; c/o toothache; pt states 4/10; pt has multiple caries; multiple broken and missing teeth to upper and lower jaw; swelling present to rt cheek and rt eye; rt upper gum red and swollen; hypertensive; skin PDW Physician History: This is a 26-year-old white female patient who has generalized poor dentition and is on Suboxone. She has no known drug allergies. She does have a history of anxiety, borderline personality disorder, panic disorder and smokes cigarettes daily. In addition she uses marijuana, methamphetamines and narcotics. In the last couple days she was noticing increasing tenderness in the left upper teeth with some left cheek swelling. The swelling was worse today therefore, she came in to receive antibiotics Timing/Duration: gradual onset Severity: mild (To moderate) ENT Location: facial, dental Prearrival Treatment: no prearrival treatment Associated Symptoms: facial pain/swelling (Mild right cheek swelling), tooth pain Allergies/Adverse Reactions: No Known Drug Allergies Allergy (Verified 12/27/21 22:08) Home Medications: Buprenorphine HCl/Naloxone HCl [Buprenorphine-Nalox 8-2 mg Tab] 1 tab SL BID 07/29/21 [History] Hx Tetanus, Diphtheria Vaccination/Date Given: Yes Hx Influenza Vaccination/Date Given: No Hx Pneumococcal Vaccination/Date Given: No Travel Risk - International Travel Have you traveled outside of the country in past 3 weeks: No - Coronavirus Screening Are you exhibiting any of the following symptoms?: No Close contact with a COVID-19 positive Pt in past 14-21 Days: No - Vaccine Status Have you recieved a Covid-19 vaccination: No - Review of Systems Constitutional: No Symptoms Eyes: No Symptoms Ears, Nose, & Throat: Other (Right upper teeth tenderness and right cheek/facial swelling) Respiratory: No Symptoms Cardiac: No Symptoms Abdominal/Gastrointestinal: No Symptoms Genitourinary Symptoms: No Symptoms Musculoskeletal: No Symptoms Skin: No Symptoms Neurological: No Symptoms Psychological: No Symptoms Endocrine: No Symptoms Hematologic/Lymphatic: No Symptoms Immunological/Allergic: No Symptoms All Other Systems: Reviewed and Negative - Past Medical History Pertinent Past Medical History: Yes Neurological History: No Pertinent History ENT History: No Pertinent History Cardiac History: No Pertinent History Respiratory History: No Pertinent History Endocrine Medical History: No Pertinent History Musculoskeletal History: No Pertinent History GI Medical History: No Pertinent History History: No Pertinent History Psycho-Social History: Anxiety, Depression, Other Female Reproductive Disorders: No Pertinent History Other Medical History: borderline personality disorder, panic disorder. tooth infection - plan for oral surgery 08/01/21 to remove all teeth - Past Surgical History Past Surgical History: No - Social History Smoking Status: Current every day smoker How long have you smoked: 11 years Exposure to second hand smoke: Yes Drug Use: marijuana, methamphetamines, narcotics, other Patient Lives Alone: Yes - Female History Hx Now: No - Nursing Vital Signs Nursing Vital Signs: Initial Vital Signs Temperature 97.6 F 12/27/21 22:09 Pulse Rate 95 H 12/27/21 22:09 Respiratory Rate 14 12/27/21 22:09 Blood Pressure 145/104 12/27/21 22:09 O2 Sat by Pulse Oximetry 98 12/27/21 22:09 Pain Scale Pain Intensity 4 - Physical Exam General Appearance: no apparent distress, alert, anxiety Eye Exam: bilateral eye: normal inspection, PERRL, EOMI Ear Exam: bilateral ear: auricle normal Nasal Exam: normal inspection Throat Exam: dental tenderness (Generalized poor dentition with multiple fractured teeth and extensive dental caries present. 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, normal mood/affect, nml cerebellar function, nml station & gait, sensation nml Skin Exam: normal color, warm, dry SpO2 Interpretation: normal SpO2: 98 O2 Delivery: Room Air - Course Nursing assessment & vital signs reviewed: Yes Ordered Tests: Medication Summary Discontinued Medications Generic Name Dose Route Start Last Admin Trade Name Freq PRN Reason Stop Dose Admin Ceftriaxone Sodium 1,000 mg 12/27/21 22:31 Ceftriaxone Sodium 1000 Mg Inj Vial IM 12/27/21 22:32 STAT ONE - Progress Progress: unchanged Counseled pt/family regarding: diagnosis, need for follow-up - Departure Departure Disposition: Home Clinical Impression: Pain due to dental caries Condition: Stable Critical Care Time: No Referrals: DOCTOR,NO FAMILY [Primary Care Provider] - Follow up/PCP as directed Additional Instructions: Use Tylenol and ibuprofen for pain control. Take your antibiotics as prescribed. Follow-up with a dentist tomorrow by phone to make an appointment for definitive care Prescriptions: Amoxicillin 500 mg Cap [Amoxil 500 mg] 500 mg PO TID #30 cap
[2021-12-27 23:00] VITALS: PULSE 82
== END 2021-12-27 23:00 | disposition home or self-care (01) ==
LOC: ED 21:46
DX: K02.9 Dental caries, unspecified (principal); K08.89 Other specified disorders of teeth and supporting structures; Z72.0 Tobacco use; Z79.891 Long term (current) use of opiate analgesic; Z28.310 Unvaccinated for COVID-19
CPT/HCPCS: 96372; 99282; J0696

== ENCOUNTER 2023-01-21 00:48 | Emergency (ER) | payer OTHER ==
[2023-01-21 01:53] VITALS: RESP 16; TEMP 98.3
[2023-01-21] MEDS ORDERED: Sodium Chloride 0.9% 1000 ML 1,000 ML IV STA ×2 (01:54→02:59)
[2023-01-21] MEDS ORDERED: Zofran 4 MG/2 ML VIAL IV ONE (01:54)
--- NOTE | 2023-01-21 01:58 | ERPHSYRPT ---
- History of Present Illness Time Seen by Provider: 01/21/23 01:32 Historian: patient Exam Limitations: no limitations Patient Subjective Stated Complaint: pt states she has been vomiting all day Triage Nursing Assessment: pt alert and oriented, answers questions approp. pt ambulates into room with steadyg ait noted. respirations nonlabored. skin warm and dry. abd soft and nontender to palpation. bowel sounds present x4. Physician History: 27 years old female presented in the ER with chief complaint of nausea vomiting and diarrhea with some abdominal cramping all day yesterday. Patient reports almost 4 episodes of nonprojectile, nonbilious vomiting without hematemesis and almost same amount of loose stool. Unable to hold much down, feels weak fatigued tired and dehydrated. Reports getting dizzy and lightheaded with standing and ambulating. Denies fever or chills but mild sinus congestion. Allergies/Adverse Reactions: No Known Drug Allergies Allergy (Verified 01/21/23 01:41) Home Medications: Buprenorphine HCl/Naloxone HCl [Buprenorphine-Nalox 8-2 mg Tab] 2 tab SL DAILY 07/29/21 [History] Hx Tetanus, Diphtheria Vaccination/Date Given: Yes Hx Influenza Vaccination/Date Given: No Hx Pneumococcal Vaccination/Date Given: No Immunizations Up to Date: Yes Travel Risk - International Travel Have you traveled outside of the country in past 3 weeks: No - Coronavirus Screening Are you exhibiting any of the following symptoms?: No Close contact with a COVID-19 positive Pt in past 14-21 Days: No - Vaccine Status Have you recieved a Covid-19 vaccination: No - Review of Systems Constitutional: Fatigue, Weakness Eyes: No Symptoms Ears, Nose, & Throat: Nose Congestion Respiratory: No Symptoms Cardiac: No Symptoms Abdominal/Gastrointestinal: Abdominal Pain, Nausea, Vomiting, Diarrhea Genitourinary Symptoms: No Symptoms Musculoskeletal: Myalgias Skin: No Symptoms Neurological: No Symptoms Endocrine: No Symptoms Hematologic/Lymphatic: No Symptoms Immunological/Allergic: No Symptoms - Past Medical History Pertinent Past Medical History: Yes Neurological History: No Pertinent History ENT History: No Pertinent History Cardiac History: No Pertinent History Respiratory History: No Pertinent History Endocrine Medical History: No Pertinent History Musculoskeletal History: No Pertinent History GI Medical History: No Pertinent History History: No Pertinent History Psycho-Social History: Anxiety, Depression, Other Female Reproductive Disorders: No Pertinent History Other Medical History: borderline personality disorder, panic disorder - Past Surgical History Past Surgical History: No - Social History Smoking Status: Current every day smoker How long have you smoked: 12 years Exposure to second hand smoke: Yes Drug Use: marijuana Patient Lives Alone: No - Female History Hx Last Menstrual Period: current Hx Now: No - Nursing Vital Signs Nursing Vital Signs: Initial Vital Signs Temperature 98.3 F 01/21/23 01:42 Pulse Rate 81 01/21/23 01:42 Respiratory Rate 16 01/21/23 01:42 Blood Pressure 121/85 01/21/23 01:42 O2 Sat by Pulse Oximetry 96 01/21/23 01:42 Pain Scale Pain Intensity 0 - Physical Exam General Appearance: no apparent distress, alert Eye Exam: PERRL/EOMI Ears, Nose, Throat Exam: pharyngeal erythema Neck Exam: normal inspection, full range of motion Respiratory Exam: normal breath sounds, lungs clear Cardiovascular Exam: regular rate/rhythm, normal heart sounds Gastrointestinal/Abdomen Exam: soft, normal bowel sounds, No tenderness, No distention, No guarding Back Exam: normal inspection Extremity Exam: normal inspection, normal range of motion Neurologic Exam: alert, oriented x 3, cooperative, spanish speaking babysitter II-XII nml as tested Skin Exam: normal color SpO2 Interpretation: normal SpO2: 96 O2 Delivery: Room Air Ordered Tests: Active Orders 24 hr Category Date Time Status IV Insertion STAT Care 01/21/23 01:54 Completed NPO (ED) STAT Care 01/21/23 01:54 Completed CBC W DIFF Stat Lab 01/21/23 02:23 Completed CMP Stat Lab 01/21/23 02:23 Completed CULTURE,URINE Stat Lab 01/21/23 02:06 Received HCG QUALITATIVE, URINE Stat Lab 01/21/23 02:23 Completed LIPASE Stat Lab 01/21/23 02:23 Completed UA W/RFX UR CULTURE Stat Lab 01/21/23 02:06 Completed Medication Summary Discontinued Medications Generic Name Dose Route Start Last Admin Trade Name Freq PRN Reason Stop Dose Admin Sodium Chloride 1,000 mls @ 999 mls/hr 01/21/23 01:54 01/21/23 03:48 Sodium Chloride 0.9% 1000 Ml IV 01/21/23 02:54 Infused .Q1H1M STA Infusion Sodium Chloride Confirm 01/21/23 02:10 Sodium Chloride 0.9% 1000 Ml Administered 01/21/23 02:11 Dose 1,000 mls @ ud .ROUTE .STK-MED ONE Sodium Chloride 1,000 mls @ 999 mls/hr 01/21/23 02:59 01/21/23 03:02 Sodium Chloride 0.9% 1000 Ml IV 01/21/23 03:59 999 mls/hr .Q1H1M STA Administration Sodium Chloride Confirm 01/21/23 03:01 Sodium Chloride 0.9% 1000 Ml Administered 01/21/23 03:02 Dose 1,000 mls @ ud .ROUTE .STK-MED ONE Ondansetron HCl 4 mg 01/21/23 01:54 01/21/23 02:13 Ondansetron Hcl 4 Mg/2 Ml Vial IV 01/21/23 01:55 4 mg STAT ONE Administration Ondansetron HCl Confirm 01/21/23 02:10 Ondansetron Hcl 4 Mg/2 Ml Vial Administered 01/21/23 02:11 Dose 4 mg .ROUTE .STK-MED ONE Lab/Rad Data: Laboratory Result Diagrams 01/21/23 02:23 01/21/23 02:23 Laboratory Results 01/21/23 01/21/23 01/21/23 Range/Units 02:23 02:23 02:23 WBC (4.0-10.5) x10^3/uL RBC (4.1-5.4) x10^6/uL Hgb (12.0-16.0) g/dL Hct (35-47) % MCV (78-100) fL MCH (26-32) pg MCHC (32-36) g/dL RDW (11.5-14.0) % Plt Count (150-450) x10^3/uL MPV (7.5-11.0) fL Gran % (36.0-66.0) % Immature Gran % (Auto) (0.00-0.4) % Nucleat RBC Rel Count (0.00-0.1) % Eos # (Auto) (0-0.5) x10^3/uL Immature Gran # (Auto) (0.00-0.03) x10^3u/L Absolute Lymphs (auto) (1.0-4.6) x10^3/uL Absolute Monos (auto) (0.0-1.3) x10^3/uL Absolute Nucleated RBC (0.00-0.01) x10^3u/L Lymphocytes % (24.0-44.0) % Monocytes % (0.0-12.0) % Eosinophils % (0.00-5.0) % Basophils % (0.0-0.4) % Absolute Granulocytes (1.4-6.9) x10^3/uL Basophils # (0-0.4) x10^3/uL Sodium 137 (137-145) mmol/L Potassium 3.7 (3.5-5.1) mmol/L Chloride 100 (98-107) mmol/L Carbon Dioxide 25 (22-30) mmol/L Anion Gap 15.8 H (5-15) MEQ/L BUN 15 (7-17) mg/dL Creatinine 0.69 (0.52-1.04) mg/dL Estimated GFR 121.2 ML/MIN Glucose 97 (74-106) mg/dL Calcium 9.0 (8.4-10.2) mg/dL Total Bilirubin 1.00 (0.2-1.3) mg/dL AST 28 (14-36) U/L ALT 18 (0-35) U/L Alkaline Phosphatase 56 (38-126) U/L Serum Total Protein 7.7 (6.3-8.2) g/dL Albumin 4.5 (3.5-5.0) g/dL Lipase 81 (23-300) U/L Urine Color (Yellow) Urine Appearance (Clear) Urine pH (4.6-8.0) Ur Specific [place] (1.005-1.030) Urine Protein (Negative) Urine Glucose (UA) (Negative) mg/dL Urine Ketones (Negative) Urine Blood (Negative) Urine Nitrite (Negative) Urine Bilirubin (Negative) Urine Urobilinogen (0.2) mg/dL Ur Leukocyte Esterase (Negative) U Hyaline Cast (Auto) (0-2) /LPF Urine Microscopic RBC (0-5) /HPF Urine Microscopic WBC (0-5) /HPF Ur Epithelial Cells (None Seen) /HPF Urine Bacteria (None Seen) /HPF Urine Culture Reflexed (NO) Urine HCG, Qual NEGATIVE (NEGATIVE) Influenza Type A Ag NEGATIVE (NEGATIVE) Influenza Type B Ag NEGATIVE (NEGATIVE) RSV (PCR) NEGATIVE (NEGATIVE) SARS-CoV-2 (PCR) NEGATIVE (NEGATIVE) 01/21/23 01/21/23 Range/Units 02:23 02:06 WBC 8.7 (4.0-10.5) x10^3/uL RBC 4.88 (4.1-5.4) x10^6/uL Hgb 15.2 (12.0-16.0) g/dL Hct 44.9 (35-47) % MCV 92.0 (78-100) fL MCH 31.1 (26-32) pg MCHC 33.9 (32-36) g/dL RDW 12.1 (11.5-14.0) % Plt Count 383 (150-450) x10^3/uL MPV 10.0 (7.5-11.0) fL Gran % 84.4 H (36.0-66.0) % Immature Gran % (Auto) 0.1 (0.00-0.4) % Nucleat RBC Rel Count 0.0 (0.00-0.1) % Eos # (Auto) 0.19 (0-0.5) x10^3/uL Immature Gran # (Auto) 0.01 (0.00-0.03) x10^3u/L Absolute Lymphs (auto) 0.67 L (1.0-4.6) x10^3/uL Absolute Monos (auto) 0.48 (0.0-1.3) x10^3/uL Absolute Nucleated RBC 0.00 (0.00-0.01) x10^3u/L Lymphocytes % 7.7 L (24.0-44.0) % Monocytes % 5.5 (0.0-12.0) % Eosinophils % 2.2 (0.00-5.0) % Basophils % 0.1 (0.0-0.4) % Absolute Granulocytes 7.36 H (1.4-6.9) x10^3/uL Basophils # 0.01 (0-0.4) x10^3/uL Sodium (137-145) mmol/L Potassium (3.5-5.1) mmol/L Chloride (98-107) mmol/L Carbon Dioxide (22-30) mmol/L Anion Gap (5-15) MEQ/L BUN (7-17) mg/dL Creatinine (0.52-1.04) mg/dL Estimated GFR ML/MIN Glucose (74-106) mg/dL Calcium (8.4-10.2) mg/dL Total Bilirubin (0.2-1.3) mg/dL AST (14-36) U/L ALT (0-35) U/L Alkaline Phosphatase (38-126) U/L Serum Total Protein (6.3-8.2) g/dL Albumin (3.5-5.0) g/dL Lipase (23-300) U/L Urine Color Yellow (Yellow) Urine Appearance Clear (Clear) Urine pH 5.0 (4.6-8.0) Ur Specific [place] >=1.030 A (1.005-1.030) Urine Protein Trace A (Negative) Urine Glucose (UA) Negative (Negative) mg/dL Urine Ketones 80 A (Negative) Urine Blood Large A (Negative) Urine Nitrite Negative (Negative) Urine Bilirubin Negative (Negative) Urine Urobilinogen 1.0 A (0.2) mg/dL Ur Leukocyte Esterase Trace A (Negative) U Hyaline Cast (Auto) NONE SEEN (0-2) /LPF Urine Microscopic RBC 6-10 A (0-5) /HPF Urine Microscopic WBC 6-10 A (0-5) /HPF Ur Epithelial Cells Few (None Seen) /HPF Urine Bacteria None Seen (None Seen) /HPF Urine Culture Reflexed YES (NO) Urine HCG, Qual (NEGATIVE) Influenza Type A Ag (NEGATIVE) Influenza Type B Ag (NEGATIVE) RSV (PCR) (NEGATIVE) SARS-CoV-2 (PCR) (NEGATIVE) - Progress Progress: improved Progress Note: 01/21/23 02:57 27 years old female presented in the ER with chief complaint of nausea vomiting and diarrhea with some abdominal cramping all day yesterday. Patient reports almost 4 episodes of nonprojectile, nonbilious vomiting without hematemesis and almost same amount of loose stool. Unable to hold much down, feels weak fatigued tired and dehydrated. Reports getting dizzy and lightheaded with standing and ambulating. Denies fever or chills but mild sinus congestion. She is given fluids and symptomatic treatment, on reevaluation she is feeling much improved. No vomiting or diarrhea while in the ER. Workup showed normal white count, fairly unremarkable chemistries except for dehydration. She is given another bag of fluid as well. Patient COVID flu and RSV are negative. Abdominal exams remain soft nontender with good bowel sounds. I believe patient has viral etiology symptoms and recommended supportive care. Discussed signs symptoms of worsening needing return to ER which she seems stable for discharge. Counseled pt/family regarding: lab results, diagnosis, need for follow-up, rad results, smoking cessation Medical Desision Making - Diagnostic Testing Diagnostic test were ordered, analyzed, and reviewed by me: Yes - Risk of complications The pt has a mod risk of morbidity or mortality based on: Need for prescription drug management - Departure Clinical Impression: Viral gastroenteritis Condition: Stable Critical Care Time: No Referrals: DOCTOR,NO FAMILY [Primary Care Provider] - Follow up with PCP 1 day Instructions: Viral Gastroenteritis, Adult (DC) Additional Instructions: Tylenol/Zofran as needed. Drink plenty of fluids to keep yourself well-hy drated. Follow-up with primary care for reevaluation. Return to ER for intractable vomiting, abdominal pain, fever chills etc. Prescriptions: Ondansetron ODT 4 MG [Zofran Odt 4 mg] 1 ea PO QIDPRN PRN #7 tablet PRN Reason: n/v
[2023-01-21] MEDS ORDERED: Zofran 4 MG/2 ML VIAL ONE (02:10)
[2023-01-21] MEDS ORDERED: Sodium Chloride 0.9% 1000 ML 1,000 ML ONE ×2 (02:10→03:01)
[2023-01-21 02:14] LABS: Appearance Clear (Clear); Bacteria None Seen /HPF (None Seen); Bilirubin Negative (Negative); Blood Large (Negative); Epithelial Cells Few /HPF (None Seen); Glucose, Urine Negative (Negative); Hyaline Casts NONE SEEN /LPF (0-2); Ketones 80 (Negative); Leukocyte Esterase Trace (Negative); Nitrite Negative (Negative); Protein,Urine Dip Trace (Negative); Specific Gravity >=1.030 (1.005-1.030)
[2023-01-21 02:26] LABS: Absolute Neutrophil Ct (ANC) 7.36 x10^3/uL (1.4-6.9); BASOPHIL % 0.1 % (0.0-0.4); Basophil (Absolute #) 0.01 x10^3/uL (0-0.4); Eosinophil % 2.2 % (0.00-5.0); Eosinophil (Absolute #) 0.19 x10^3/uL (0-0.5); Hematocrit 44.9 % (35-47); Hemoglobin 15.2 g/dL (12.0-16.0); IMMATURE GRAN # 0.01 x10^3u/L (0.00-0.03); IMMATURE GRAN % 0.1 % (0.00-0.4); Lymphocyte (Absolute #) 0.67 x10^3/uL (1.0-4.6); Lymphocytes % 7.7 % (24.0-44.0); Mean Corpuscular Hemoglobin 31.1 pg (26-32); Mean Corpuscular Hgb Concent. 33.9 g/dL (32-36); Monocyte (Absolute #) 0.48 x10^3/uL (0.0-1.3); Monocytes % 5.5 % (0.0-12.0); Neutrophil % 84.4 % (36.0-66.0); Platelet Count 383 x10^3/uL (150-450); Red Blood Count 4.88 x10^6/uL (4.1-5.4); Red Cell Distribution Width 12.1 % (11.5-14.0); White Blood Count 8.7 x10^3/uL (4.0-10.5)
[2023-01-21 02:31] LABS: ADD URINE CULTURE? YES (NO)
[2023-01-21 02:39] LABS: ALBUMIN 4.5 g/dL (3.5-5.0); ANION GAP 15.8 MEQ/L (5-15); Creatinine 1 0.69 mg/dL (0.52-1.04); EST GLOMERULAR FILTRATION RATE 121.2 ML/MIN; Potassium 3.7 mmol/L (3.5-5.1); Total Protein 7.7 g/dL (6.3-8.2)
[2023-01-21 02:41] LABS: HCG URINE TEST NEGATIVE (NEGATIVE)
[2023-01-21 03:03] LABS: INFLUENZA A NEGATIVE (NEGATIVE); INFLUENZA B NEGATIVE (NEGATIVE); RESPIRATORY SYNCTIAL VIRUS NEGATIVE (NEGATIVE); SARS-CoV-2 Xpert Express NEGATIVE (NEGATIVE)
[2023-01-21 04:15] VITALS: BP 115/83; PULSE 71
[2023-01-21 07:00] VITALS: O2SAT 96
== END 2023-01-21 04:16 | disposition home or self-care (01) ==
LOC: ED 00:48
DX: A08.4 Viral intestinal infection, unspecified (principal); R11.2 Nausea with vomiting, unspecified; R10.9 Unspecified abdominal pain; R53.1 Weakness; R53.83 Other fatigue; R42 Dizziness and giddiness; Z79.891 Long term (current) use of opiate analgesic; Z28.310 Unvaccinated for COVID-19; Z72.0 Tobacco use
CPT/HCPCS: 0241U; 36000; 36415; 80053; 81001; 81025; 83690; 85025; 87086; 96360; 96374; 99284; J2405